=== PATIENT | male | born 1955 | race Caucasian/White ===

== ENCOUNTER → 2024-11-26 | Outpatient (CLI) | payer MEDICARE, MEDICAID, SELFPAY ==
--- NOTE | 2024-11-26 | XR_ITS ---
Examination: Bone scan whole body, radioisotope Date and time of exam: November 26, 2024 1402 hours INDICATIONS: Elevated PSA and laboratory examination this week Technique: Study has been performed with intravenous administration of 22.7 mci 99M technetium MDP. Anterior, posterior whole body images are obtained. Images have been obtained including the lower extremities. Findings: Increased isotope accumulation posterior left sixth and seventh ribs possibly left 11th rib Increased isotope accumulation L5 and first sacral segment Subtle increased isotopic examination upper posterior cranial vault IMPRESSION: Positive bone scan but nonspecific Recommend 6 views, series, bilateral rib series, 5 view lumbar spine and AP pelvis films follow-up
== END | disposition home or self-care (01) ==
LOC: SNUC 08:23
PROVIDERS: PCP General Practice; Referring Provider General Practice; Visit Provider General Practice
DX: R93.7 Abnormal findings on diagnostic imaging of other parts of musculoskeletal system (principal)
CPT/HCPCS: 78306; A9503

== ENCOUNTER → 2024-12-06 | Outpatient (CLI) | payer MEDICARE, MEDICAID, SELFPAY ==
--- NOTE | 2024-12-06 15:00 | XR_ITS ---
Examination: CT abdomen and pelvis without contrast. Coronal 3-D reconstructions. Sagittal 2-D reconstructions. Date and time of exam:December 06, 2024 1511 hours Comparison August 26, 2021 INDICATIONS: Diagnosis malignant neoplasm prostate, restaging, positive but nonspecific bone scan November 26, 2024 increased isotope accumulation posterior left sixth and seventh ribs left 11th rib L5 first sacral segment CTDI: vol (mGy): 7.84 DLP: (mGycm): 486 Technique: Axial images of the abdomen have been obtained, 3 mm slice thickness Intravenous contrast material has not been administered. Low dose protocols were performed. One or more of the following dose reduction techniques were used; automated exposure control, adjustment of the mA and/or KV according to patient size, use of iterative reconstruction technique. Findings: Atelectasis versus pneumonia left base No focal liver or splenic lesions Contracted gallbladder No pancreatic or adrenal mass Multiple bilateral tiny 1 to 2 mm renal calculi Left parapelvic cysts, the largest 5.6 cm No hydronephrosis Aorta normal size Normal appendix No bowel obstruction Normal seminal vesicles AP prostate dimension 37 mm Abnormal sclerosis involving the L5 vertebral body IMPRESSION: Tiny bilateral nonobstructing renal calculi No abdominal or pelvic lymphadenopathy No prostatomegaly Abnormal sclerosis involving the L5 vertebral body, recommend MRI lumbar spine pre and post contrast follow-up
== END | disposition home or self-care (01) ==
PROVIDERS: Referring Provider General Practice; Visit Provider General Practice
DX: N20.0 Calculus of kidney (principal); M48.8X6 Other specified spondylopathies, lumbar region
CPT/HCPCS: 74176

== ENCOUNTER → 2024-12-29 | Outpatient (CLI) | payer MEDICARE, MEDICAID, SELFPAY ==
--- NOTE | 2024-12-29 09:08 | XR_ITS ---
Examination: Bilateral ribs with PA chest 5 views TECHNIQUE: Upright PA chest, TURNER, PERSIAN right and left ribs total 5 views Date and time: December 21, 2024 1042 hours Comparison September 01, 2021 INDICATIONS: Diagnosis malignant neoplasm prostate, positive internal medicine bone scan left ribs FINDINGS: Normal heart size No pneumonia or pulmonary edema No pneumothorax Old fractures left third, fourth, fifth, eighth ribs No osteoblastic metastatic disease depicted IMPRESSION: No osteoblastic metastatic disease depicted, increased isotope accumulation on the nuclear medicine bone scan likely relates to the old rib fractures on the left
--- NOTE | 2024-12-29 09:08 | XR_ITS ---
Examination: Lumbar spine, 5 views Technique: Lumbar spine AP, lateral, coned lateral lower lumbar spine, bilateral obliques 5 views Exam date and time: December 21, 2024 1036 hours INDICATIONS: Diagnosis malignant neoplasm prostate, positive bone scan L5 first sacral segment November 26, 2014 FINDINGS: Prominent facet arthropathy Prominent lumbar spondylosis Sclerosis evident involving the inferior aspect L5 vertebral body IMPRESSION: Suspicious for osteoblastic metastasis L5 vertebral body, consider MRI lumbar spine pre and post contrast follow-up
--- NOTE | 2024-12-29 09:08 | XR_ITS ---
Examination: Skull series 2 views TECHNIQUE: Ying left lateral skull series 2 views Date and time: December 21, 2024 at 1036 hours INDICATIONS: Diagnosis malignant neoplasm prostate, nuclear medicine bone scan December 26, 2024 positive posterior cranial vault FINDINGS: No findings diagnostic for osteoblastic metastatic disease Normal sella turcica No abnormal intracranial calcification IMPRESSION: No findings diagnostic for osteoblastic metastatic disease
--- NOTE | 2024-12-29 09:08 | XR_ITS ---
Examination: AP lateral pelvis 2 views Technique one AP lateral pelvis 2 views Date and time: December 21, 2024 1112 hours INDICATIONS: Diagnosis malignant neoplasm prostate, positive nuclear medicine bone scan November 26, 2024 L5 and sacrum FINDINGS: Dense sclerosis involving the L5 vertebral body Sacral segments intact Hips and iliac bones intact IMPRESSION: Suspicious for osseous metastatic disease involving L5
== END | disposition home or self-care (01) ==
LOC: SDIM 09:01
PROVIDERS: PCP General Practice; Referring Provider General Practice; Visit Provider General Practice
DX: R93.7 Abnormal findings on diagnostic imaging of other parts of musculoskeletal system (principal)
CPT/HCPCS: 70250; 71110; 72110; 72170

== ENCOUNTER 2025-01-18 08:40 | Day surgery (SDC) | payer MEDICARE, MEDICAID, SELFPAY ==
--- NOTE | 2025-01-17 12:26 | ESHP_ITS ---
RE: QUINTEN WOODS : 1955 DATE OF ADMISSION: 01/17/2025 HISTORY OF PRESENT ILLNESS: Quinten Woods is an inmate at [facility]. The patient has history of adenocarcinoma of the prostate, Amoret grade 6, 3+3, prostate cancer, and has an elevated PSA, which is now 26.55. The patient did have several studies done. Bone scan was done, which revealed increased isotope accumulation on the posterior left 6th and 7th rib and increased accumulation on L5. The report was positive bone scan, but not specific. CT scan of the abdomen and pelvis did not reveal any evidence of pelvic lymphadenopathy. The patient has bilateral nonobstructing renal calculi with no evidence of lymph node enlargement in the abdomen. The stones in the kidney are 1-2 mm in size and they are not obstructive. The patient did have a chest x-ray done, which revealed an old fracture on the left third, fourth, fifth, and eighth ribs. So, the bone scan is probably showing an old fracture with increased uptake of the isotope. The patient does not have any trouble urinating. He is urinating well. PHYSICAL EXAMINATION: HEENT: Normal. NECK: Supple. LUNGS: Clear. CARDIOVASCULAR: Heart sounds are normal. ABDOMEN: Soft without any organomegaly. No guarding. No rigidity. EXTREMITIES: Normal. IMPRESSION: History of adenocarcinoma of the prostate, grade 6, 3+3, with a rising PSA, now the PSA being 26.55. PLAN: We will do cystoscopy and repeat biopsy of the prostate to see if his prostate cancer has gone higher in the grade. Usually for grade 6 tumor, observation is recommended, but in this case, the PSA is going up. We will do the biopsy again to see if the prostate cancer has gone up in the grade, which may require different treatment. Thank you very much for your kind referral. cc: Support Services at [facility] DT: 11:17:55 TT: 12:03:00 Ref: [id number] - TID: [id number]
[2025-01-17 13:24] VITALS: BMI 30.6
[2025-01-18 09:18] VITALS: BP 131/85; PULSE 77; RESP 12; TEMP 36.9; O2SAT 96; BMI 30.9
[2025-01-18] MEDS: RINGERS LACTATED 1000 ML 1,000 ML 20 ML IV (09:51)
--- NOTE | 2025-01-18 11:00 | XR_ITS ---
Examination: Transrectal prostate sonography TECHNIQUE: Grayscale sonographic images prostate obtained for localization of the prostate lobes for prostate biopsy by physician Date and time: 09/20/1999 2519 hours INDICATIONS: Prostate biopsies ultrasound-guided today FINDINGS: Multiple grayscale sonographic images prostate obtained for localization prostate lobes IMPRESSION: Multiple transrectal sonographic images prostate obtained for biopsy of the prostate lobes
[2025-01-18 11:37] VITALS: BP 109/73; PULSE 80; RESP 17; TEMP 36.3; O2SAT 96
--- NOTE | 2025-01-18 11:37 | SUR.PHASEI ---
Pt. arrived to recovery via gurney, eyes open, no c/o pain or nausea at this time, VSS, lung sounds clear, equal expansion alycia., pt. receiving 2 liters 02 via NC, assessed margarita-area, no active bleeding or redness noted. Report received from [facility] ALAN and Dr. Ridley.
[2025-01-18 11:42] VITALS: BP 106/85; PULSE 78; RESP 14; O2SAT 97
[2025-01-18 11:47] VITALS: BP 131/85; PULSE 78; RESP 20; O2SAT 98
[2025-01-18 11:57] VITALS: BP 132/96; PULSE 75; RESP 13; TEMP 36.6; O2SAT 96
[2025-01-18 12:10] VITALS: BP 131/90; PULSE 71; RESP 17; TEMP 36.6; O2SAT 97
--- NOTE | 2025-01-18 12:13 | SUR.OPER ---
Patient to O.R. 5 accompanied by child and adolescent psychologist Olya). Patient was well behaved.
--- NOTE | 2025-01-18 12:30 | SUR.PHASEII ---
Pt. meets criteria for discharge, VSS, no c/o pain or nausea at this time, IV discontinued without complications, pt. tolerating oral fluids and has voided. Discharge instructions provided to pt. and pt.'s caregiver, verbalized understanding. Pt. escorted via w/c with all of belongings by staff.
[2025-01-18 13:30] LABS: Prostate Specific Antigen 23.68 ng/mL (0-4.00)
--- NOTE | 2025-01-18 23:43 | ESOP_ITS ---
RE: QUINTEN CHACON : 1955 DATE OF OPERATION: 01/18/2025 PREOPERATIVE DIAGNOSIS: Elevated PSA of 20.55, which is rising. The patient history of prostate cancer, grade 6 (3+3). POSTOPERATIVE DIAGNOSIS: Elevated PSA of 20.55, which is rising. History of prostate cancer, grade 6 (3+3). PROCEDURE PERFORMED: Cystoscopy and transrectal prostatic ultrasound with ultrasound-guided prostatic needle biopsy. ANESTHESIA: Monitored anesthesia by Dr. Ridley. INDICATION: The patient is a 69-year-old male from [facility]. He is an inmate with elevated PSA. His PSA has been going up for a long time. The patient had previously two transrectal prostatic needle biopsies done. The first biopsy was negative for any prostate cancer. The second biopsy, which was done later on, revealed grade 6 (3+3). The patient does not have any urinary symptoms. He urinates fine without any difficulty. The patient had cystoscopy done, which revealed mild enlargement of bilobed prostate without any obstruction. The patient's rectal examination has been revealing small prostate without any hard nodules. The patient in view of his prostate cancer diagnosis, had a bone scan and a CT scan of the abdomen and pelvis. CT scan of the abdomen and pelvis did not reveal any evidence of lymph node enlargement in his abdomen. The prostate was small and kidneys did not show any stones or tumors. The patient had a bone scan done, which revealed some increased activity in the L5 region for which the patient had x-ray of his skull, his ribs, and pelvis, which revealed old fractures of the left lower ribs, but there was no evidence of any metastatic disease in his skull in the ribs. The patient's rectal examination has been always showing a small-sized prostate without any hard nodules. The patient is now scheduled to have cystoscopy and transrectal prostatic needle biopsy. The prostatic needle biopsy is arranged to see if his Bells grade has gone up from 3+3 equal to 6 from before. At this time, the patient is being watched for his low-grade prostate cancer. Again, the patient's PSA has been rising, so this examination is arranged. DESCRIPTION OF PROCEDURE: After the patient was brought to the operating table under adequate monitored anesthesia, given by Dr. Ridley, he was placed in dorsal lithotomy position. Parts were prepped and draped in the usual fashion. Cystoscopy was then carried out, which revealed adequate urethral meatus, normal-appearing urethra. Prostate revealed small prostate bilobed prostate without much obstruction. Scope was introduced into the bladder. Residual urine yellow and clear and was sent for culture and sensitivity examination. There were no intravesical stones or tumors. Ureteral orifices were found to be normal in position and appearance. Scope was withdrawn. The patient was then turned in left lateral position. Transrectal prostatic ultrasound was then carried out. Volume was measured at 26.7 cubic cm, so the patient has a small prostate. Biopsies were obtained from both lobes using ultrasound guidance. All 10 biopsies were obtained from the prostate. Biopsies were sent for histological examination. The patient tolerated the entire procedure well and left the room in good condition. PLAN: We will wait for the biopsy report to see if the patient has prostate cancer and to see the grade of the prostate cancer. Again, I have requested PSA to be done at this hospital. DT: 12:01:34 TT: 18:47:00 Ref: [id number] - TID: [id number]
== END 2025-01-18 12:30 | disposition home or self-care (01) ==
PROVIDERS: Referring Provider Surgery; Visit Provider Surgery
PROC: (CPT 55700; principal; 2025-01-18 11:15)
PROC: 0TJB8ZZ Inspection of Bladder, Via Natural or Artificial Opening Endoscopic (ICD-10-PCS; CPT 52000; 2025-01-18 11:15)
DX: C61 Malignant neoplasm of prostate (principal); N40.1 Benign prostatic hyperplasia with lower urinary tract symptoms; R97.20 Elevated prostate specific antigen [PSA]; N20.0 Calculus of kidney
CPT/HCPCS: 55700; 36415; 76942; 84153; 87086; A4217; A4649; J0694; J2704; J3010; J7120

== ENCOUNTER → 2025-02-18 | Outpatient (CLI) | payer MEDICARE, MEDICAID, SELFPAY ==
--- NOTE | 2025-02-18 15:15 | XR_ITS ---
Examination: MRI lumbar spine, without intravenous contrast. MRI lumbar spine , with intravenous contrast. Exam date and time: February 18, 2025 1549 hours INDICATIONS: Diagnosis carcinoma in situ, positive nuclear medicine bone scan L5 on November 26, 2024 Technique: Multiple axial, sagittal and coronal images of the lumbar spine have been obtained with the Siemens high-resolution 1.5 Stacey MRI scanner. Images obtained included T2 weighted fat suppressed sagittal sections, TR 3500, TE 46, T2 weighted coronal fat suppressed images, TR 3050, TE 84, T2-weighted transverse fat suppressed images, TR 30-60, TE 63, proton density transverse images, TR 4720, TE 46, and T1 weighted coronal images, TR 560, TE 13. Axial, sagittal and coronal images are obtained post intravenous injection 16 cc gadolinium. Findings: L5 vertebral body with abnormal enhancement on the postcontrast images involving much of this vertebral body, to a lesser extent S1 No enhancing epidural tumor impinging upon the conus medullaris or cauda equina Diffuse lumbar disc desiccation L5-S1 5 mm central lumbar disc bulge IMPRESSION: Findings consistent with osseous metastatic disease involving L5 and the first sacral segment No enhancing epidural tumor impinging upon the conus medullaris or cauda equina
== END | disposition home or self-care (01) ==
LOC: SMRI 02-24 06:47
PROVIDERS: Referring Provider General Practice; Visit Provider General Practice
DX: M54.50 Low back pain, unspecified (principal)
CPT/HCPCS: 72158; A9579

== ENCOUNTER 2025-03-03 13:33 | Outpatient (RCR) | payer MEDICARE, MEDICAID, SELFPAY ==
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
--- NOTE | 2025-02-23 17:45 | CTCTXPLN_ITS ---
[facility] [address] [place], [place] [address] Physician Clinical Treatment Planning Note Date of Service: 02/23/2025 Name: QUINTEN CHACON : 1955 The patient has agreed to proceed with Radiation therapy. Tests and supporting medical records were interpreted to assist in defining the tumor location and extent of disease. Further imaging will be necessary to contour and delineate the volume to which the XRT will be provided. A. Treatment Intent: Curative 15 MV B. Modality: 15 and 6 MV C. Requested Technique: VMAT /SBRT D. Treatment Site: Pelvis L5 E. Critical structures to be contoured on plan: F. In order to accomplish this plan, I am ordering/Prescribing the followin. Simulations (s) will be performed to accomplish a reproducible treatment position, to determine optimal treatment portals/beam arrangements, to design beam modifying devices and verify treatment portals on patient prior to the commencement of Radiation Therapy. Pelvis L5 2. Devices; for immobilization and beam shaping: Vac-Jamee 3. CT Guidance for placement of XRT hudson Scan area: 4. Portal images Frequency: 5. Invivo transit dose measurement once per week on all VMAT patients. 6. Special Physics Consult Requested for: SBRT 7. Other requests: Special procedure for VMAT and SBRT G. Dose Objectives: Curative Electronically signed by: Jesse Zapata M.D. 02/23/2025 5:43 PM
--- NOTE | 2025-02-24 13:08 | CTCTXPLNST_ITS ---
Radiation Oncology Treatment Planning Sheet Name: QUINTEN CHACON MR#: [id number] : 1955 Dx: C61 Malignant neoplasm of prostate Date of Service: 02/23/2025 Account #: ?? Pt Treatment Intent: curative palliative other: Stage: Procedure CPT # Ordered Spec. Procedure 01116 1 Morton Complex (set-up) 71548 pelvis/prostate/L5 3 Morton Simple 58097 IMRT Plan 05006 3 MLC Devices VMAT 25510 12 Morton 3 D 83125 TRTMT dev Complex 30398 vaklok 1 TRTMT dev simple 20374 Basic Geo 48947 25 Special Dosimetry 71783 Spec Physics 11105 1 Port Films 68089 SRS Cranial/1FX 76238 SBR 5 FX or Less /ex: 5 = 5 fx 33435 2400 2 IMRT Simple 76537 40 IMRT Complex 70678 IGRT 41205 35 Rad del com 6-10 50649 Rad del com 11- 43622 Cont Med Physics 13036 9 Treatment Planning 89882 3 Rad del com 20 mev 58475 Rad del inter 6-10 13837 Rad del inter 11 09506 Rad del simple 6-10 96261 Rad del simple 11-19 42212 Special Port Plan 77503 TRTMT dev inter 08235 Isodose Complex 35077 Isodose simple 47828 Resp Motion Mgmt Simulation 25693 Placement of Fiducial Markers 96121 Electronically Signed By: Jesse Zapata MD, DABR 02/24/2025 1:05 PM
== END 2025-03-03 23:59 | disposition home or self-care (01) ==
LOC: SCTC 13:33
PROVIDERS: PCP General Practice; Referring Provider General Practice; Visit Provider Radiology Therapeutic Radiology
DX: C61 Malignant neoplasm of prostate (principal); C79.51 Secondary malignant neoplasm of bone
CPT/HCPCS: 77014; 77290; 77334; 77470; 99213; G0463

== ENCOUNTER 2025-04-01 09:54 | Outpatient (RCR) | payer MEDICARE, MEDICAID, SELFPAY | END 2025-04-03 23:59 | disposition home or self-care (01) | LOC: SCTC 09:54 | PROVIDERS: PCP General Practice; Referring Provider General Practice; Visit Provider Radiology Therapeutic Radiology | DX: Z51.0 Encounter for antineoplastic radiation therapy (principal); C61 Malignant neoplasm of prostate; C79.51 Secondary malignant neoplasm of bone | CPT/HCPCS: 77300; 77301; 77336; 77338; 77385 ==

== ENCOUNTER 2025-05-03 10:11 | Outpatient (RCR) | payer MEDICARE, MEDICAID, SELFPAY ==
--- NOTE | 2025-04-05 11:06 | CTCTRTNOTE_ITS ---
[facility] [address] [place], [place] [address] Weekly Management Date: 04/05/2025 ?? Name: QUINTEN INES Laurent.: 1955 Account #: ?? A. Patient is currently at 2700 cGy. B. Patient is tolerating treatment well. C. Denies pelvic symptoms. D. Resume radiation therapy. Electronically signed by: Jesse Zapata M.D. 04/05/2025 11:03 AM
== END 2025-05-03 23:59 | disposition home or self-care (01) ==
LOC: SCTC 10:11
PROVIDERS: PCP General Practice; Referring Provider General Practice; Visit Provider Radiology Therapeutic Radiology
DX: Z51.0 Encounter for antineoplastic radiation therapy (principal); C61 Malignant neoplasm of prostate
CPT/HCPCS: 77014; 77290; 77300; 77301; 77336; 77338; 77385

== ENCOUNTER 2025-05-24 11:29 | Outpatient (RCR) | payer MEDICARE, MEDICAID, SELFPAY | END 2025-06-03 23:59 | disposition home or self-care (01) | LOC: SCTC 11:29 | PROVIDERS: PCP General Practice; Referring Provider General Practice; Visit Provider Radiology Therapeutic Radiology | DX: Z51.0 Encounter for antineoplastic radiation therapy (principal); C61 Malignant neoplasm of prostate | CPT/HCPCS: 77014; 77290; 77300; 77301; 77336; 77338; 77373; 77385 ==

== ENCOUNTER 2025-06-07 11:02 | Outpatient (RCR) | payer MEDICARE, MEDICAID, SELFPAY ==
--- NOTE | 2025-06-07 11:38 | CTCTSUMM_ITS ---
[facility] [address] [place], [place] [address] Treatment Summary Date: 06/07/2025 MR#: [id number] Name: QUINTEN CHACON : 1955 Dx: C61 Referring Physician: [facility] (A) Diagnosis: [ICD10] C61 Malignant neoplasm of prostate (B) Aim of Treatment: ??Curative (C) Concomitant Chemotherapy: (D) Radiation Dates: VMAT radiation to pelvis prostate between 03/14/2025 through 05/10/2025.. SBRT to L5 on dates 05/17/2025 and 05/24/2025 Treatment Prescription L5 SBRT_4 Arcs 10MV 2,400 cGy 2 1,200 cGy Approved prostate boost VMAT 10MV 3,000 cGy 15 200 cGy Approved pelvis VMAT 10MV 4,500 cGy 25 180 cGy Approved (E) All hudson were treated using customized MLC Blocks (F) Finding at Discharge: Patient seen for first follow-up on 06/07/2025. Patient appeared well with no complaints of either pain or GI symptoms. (G) Discharge Instructions and F/U Appt was given: The patient was also advised to continue follow-up with Dr. Anatoliy Mcduffie at [facility]. Regular PSAs and occasional imaging studies will be helpful for follow-up. Cc: Anatoliy Mcduffie [facility]. Electronically signed by: Jesse Zapata MD, CIERA 06/07/2025 11:36 AM
--- NOTE | 2025-06-20 12:37 | CTCFLWUP_ITS ---
[facility] [address] [place], [place] [address] FOLLOW-UP NOTE Date: 06/20/2025 MR#: [id number] Name: QUINTEN WOODS : 1955 Dx: C61 Malignant neoplasm of prostate 1. Spoke with Dr. Anatoliy Mcduffie MD regarding [facility] patient Quinten Woods, who recently completed prostate cancer with radiation therapy to his pelvis and likely bone mets in L5 site. Treatment summary is enclosed. 2. Patient received Lupron injections under urologist Dr Cooper Pradhan?s direction. 3. He did fairly well clinically tolerating treatments, and recent PSA reportedly now in the ideal low range. 4. I am optimistic that he will do well considering how well he tolerated treatments and how well he responded. 5. Checking PSA every 6 months, after having achieved ideally low PSA of less than 0.1 should be adequate surveillance in terms of blood tests. 6. The Lupron injection should be continued for approximately 2 years, with no rise in PSA or abnormal changes in imaging studies. Currently Dr Pradhan is administering injections which he could continue with or designate to another physician. 7. Ordering radiographs only if PSA appears to be rising and /or patient complaining of unusual pain, should be adequate surveillance considering how sensitive and specific the PSA is in terms of checking for prostate cancer recurrence. 8. For now, considering the uncomplicated nature of the surveillance, and the good physicians who have been following him thus far, I will be happy to reevaluate patient again but would feel the need only for rising PSA or abnormal imaging studies. 9. Thank you for your support in caring for this patient. Cc: Anatoliy Mcduffie MD Electronically signed by: Jesse Zapata M.D. 06/20/2025 12:34 PM
== END 2025-07-03 23:59 | disposition home or self-care (01) ==
LOC: SCTC 11:02
PROVIDERS: PCP General Practice; Referring Provider General Practice; Visit Provider Radiology Therapeutic Radiology
DX: C61 Malignant neoplasm of prostate (principal)
CPT/HCPCS: 99212; G0463